=== PATIENT | female | born 1945 | race African-American/Black ===

== ENCOUNTER 2022-01-11 07:41 | Inpatient (IN) | payer MEDICAID ==
[~2022-01-11] VITALS: Ht 165.1 cm; Wt 72.6 kg
[2022-01-11 08:50] LABS: BASOPHILS % 0.3 % (0.0-2.0); HEMATOCRIT. 32.8 % (36.0-48.0); HEMOGLOBIN. 10.4 g/dL (12.0-16.0); LYMPHOCYTES % 12.6 % (20.0-50.0); MEAN CORPUSCULAR HEMOGLOBIN 25.7 pg (28.0-32.0); MEAN CORPUSCULAR VOLUME 80.7 fL (81.0-99.0); MEAN PLATELET VOLUME 8.5 fl (7.4-10.4); MONOCYTES % 6.9 % (2.0-8.0); NEUTROPHILS % 80.2 % (40.0-76.0); PLATELET 163 x1000/uL (130-400); RED BLOOD CELL COUNT 4.07 mill/uL (4.2-5.4); RED CELL DISTRIBUTION WIDTH 19.2 % (11.6-14.6)
[2022-01-11 09:02] LABS: CHLORIDE 100 mEq/L (98-107)
[2022-01-11] MEDS ORDERED: KETOROLAC 15MG/ML VIAL IV ONE (09:30)
[2022-01-11] MEDS ORDERED: ONDANSETRON HCL 4MG/2ML INJ IV ONE (10:00)
[2022-01-11] MEDS ORDERED: ASPIRIN 81MG TABLET PO ONE (11:00)
[2022-01-11] MEDS ORDERED: FUROSEMIDE 40MG/4ML VIAL IV ONE (11:00)
[2022-01-11 13:56] LABS: CLARITY URINE CLEAR (CLEAR); COLOR URINE YELLOW (YELLOW); KETONES URINE NEGATIVE (NEGATIVE); LEUKOCYTE ESTERASE URINE NEGATIVE (NEGATIVE); NITRITE URINE NEGATIVE (NEGATIVE); OCCULT BLOOD URINE 1+ (NEGATIVE); PROTEIN URINE 1+ (NEGATIVE); UROBILINOGEN URINE 0.2 E.U./dL (0.2-1.0)
[2022-01-11] MEDS ORDERED: DOCUSATE SODIUM 100MG CAPSULE PO PRN (14:30)
[2022-01-11] MEDS ORDERED: CLONIDINE 0.1MG TABLET PO PRN (14:30)
[2022-01-11] MEDS ORDERED: NITROGLYCERIN 0.4MG TABLET SL SL PRN (14:30)
[2022-01-11] MEDS ORDERED: MAGNESIUM/ALUMINUM HYDROXIDE/SIMETHICONE 30ML UDC PO PRN (14:30)
[2022-01-11] MEDS ORDERED: GUAIFENESIN 200MG/10ML SUGAR FREE UDC PO PRN (14:30)
[2022-01-11] MEDS ORDERED: ACETAMINOPHEN 325MG TABLET PO PRN (14:30)
[2022-01-11] MEDS ORDERED: ONDANSETRON HCL 4MG/2ML INJ IV PRN (14:30)
[2022-01-11] MEDS ORDERED: IPRATROPIUM/ALBUTEROL 0.5-3(2.5)MG/3ML NEB NEB PRN (14:30)
[2022-01-11] MEDS: ENOXAPARIN 40MG/0.4ML SYR SUBCUT SCH (14:30)
[2022-01-11 15:43] LABS: ETHANOL BLOOD < 10 mg/dL
[2022-01-11 15:45] LABS: LDL CHOLESTEROL 70 mg/dL (5-100); TOTAL IRON BINDING CAPACITY 474 ug/dL (250-450)
[2022-01-11 15:47] LABS: HDL CHOLESTEROL 35 mg/dL (40-59)
[2022-01-11 15:48] LABS: T4 FREE 1.24 ng/dL (0.76-1.46)
[2022-01-11 16:20] LABS: VITAMIN B12 SERUM 1478 pg/mL (211-911)
[2022-01-11 16:37] LABS: FOLIC ACID (FOLATE) SERUM > 20.00 ng/mL (>5.38)
[2022-01-11 16:44] VITALS: BP 144/100
[2022-01-11] MEDS: KETOROLAC 15MG/ML VIAL IV PRN (17:35)
[2022-01-11] MEDS ORDERED: LATA2.5D14 EACHEYE (18:01)
[2022-01-11] MEDS ORDERED: GABA-532 MT (18:01)
[2022-01-11] MEDS ORDERED: BRIM5DRO6 EACHEYE (18:01)
[2022-01-11] MEDS ORDERED: ALEN70TA79 MT (18:03)
[2022-01-11] MEDS ORDERED: DORZ10DR9 EACHEYE (18:39)
[2022-01-11] MEDS ORDERED: NIFE90TA2 PO (18:39)
[2022-01-11] MEDS ORDERED: LISI10TA26 MT (18:39)
[2022-01-11] MEDS ORDERED: TOPUD PO (18:39)
[2022-01-11] MEDS ORDERED: ACET500C47 MT (18:39)
[2022-01-11] MEDS ORDERED: HYDR25TA MT (18:39)
[2022-01-11 18:40] VITALS: BP 144/100
[2022-01-11] MEDS: ACETAMINOPHEN 325MG TABLET PO PRN (19:40)
[2022-01-11 20:00] VITALS: BP 158/95
[2022-01-11] MEDS: FUROSEMIDE 40MG/4ML VIAL IVP SCH (21:16)
[2022-01-11] MEDS: FAMOTIDINE 20MG TABLET PO SCH (21:17)
[2022-01-11] MEDS: SPIRONOLACTONE 25MG TABLET PO SCH (21:17)
[2022-01-11] MEDS: ASPIRIN 325MG EC TABLET PO SCH (21:17)
[2022-01-11] MEDS: ZOLPIDEM TARTRATE 5MG TABLET PO PRN (21:29)
[2022-01-11 22:20] LABS: CREATINE KINASE MB FRACTION 2.8 ng/mL (0.5-3.6)
[2022-01-12] VITALS: BP 138/88
[2022-01-12] MEDS: KETOROLAC 15MG/ML VIAL IV PRN ×2 (00:28→11:31)
[2022-01-12 04:00] VITALS: BP 128/74
[2022-01-12 07:56] LABS: HEMATOCRIT. 30.2 % (36.0-48.0); HEMOGLOBIN. 10.1 g/dL (12.0-16.0); MEAN CORPUSCULAR HEMOGLOBIN 25.8 pg (28.0-32.0); MEAN CORPUSCULAR VOLUME 77.3 fL (81.0-99.0); MEAN PLATELET VOLUME 8.8 fl (7.4-10.4); PLATELET 178 x1000/uL (130-400); RED CELL DISTRIBUTION WIDTH 18.6 % (11.6-14.6)
[2022-01-12 08:00] VITALS: BP 139/79
[2022-01-12 08:00] LABS: CHLORIDE 101 mEq/L (98-107)
[2022-01-12 08:07] LABS: PHOSPHORUS 4.1 mg/dL (2.5-4.9)
[2022-01-12 08:10] LABS: CREATINE KINASE 81 IU/L (26-192)
[2022-01-12 08:16] LABS: CREATINE KINASE MB FRACTION 2.4 ng/mL (0.5-3.6)
[2022-01-12] MEDS: FAMOTIDINE 20MG TABLET PO SCH ×2 (11:30→22:36)
[2022-01-12] MEDS: FUROSEMIDE 40MG/4ML VIAL IVP SCH ×2 (11:30→22:36)
[2022-01-12] MEDS: ENOXAPARIN 40MG/0.4ML SYR SUBCUT SCH (11:30)
[2022-01-12] MEDS: SPIRONOLACTONE 25MG TABLET PO SCH ×2 (11:30→21:00)
[2022-01-12 12:00] VITALS: BP 131/97
[2022-01-12 14:20] LABS: PLATELET ESTIMATE NORMAL
[2022-01-12 16:00] VITALS: BP 136/91
[2022-01-12] MEDS: BRIMONIDINE 0.2% OPHTH DROPS 5ML BOTHEYE SCH ×2 (18:21→22:38)
[2022-01-12 20:00] VITALS: BP 110/70
[2022-01-12 20:51] LABS: INR 1.1; PROTHROMBIN TIME 11.4 sec (9.6-11.0)
[2022-01-12] MEDS: ENOXAPARIN 80MG/0.8ML SYR SUBCUT SCH (21:00)
[2022-01-12] MEDS: LATANOPROST 0.005% OPHTH DROPS 2.5ML EACHEYE SCH (22:36)
[2022-01-12] MEDS: TIMOLOL MALEATE 0.25% OPHTH DROPS 5ML EACHEYE SCH (22:36)
[2022-01-13] VITALS: BP 120/77
[2022-01-13 04:00] VITALS: BP 116/71
[2022-01-13] MEDS: BRIMONIDINE 0.2% OPHTH DROPS 5ML BOTHEYE SCH ×3 (06:43→21:28)
[2022-01-13 07:55] LABS: HEMATOCRIT. 29.9 % (36.0-48.0); HEMOGLOBIN. 9.9 g/dL (12.0-16.0); MEAN CORPUSCULAR HEMOGLOBIN 25.7 pg (28.0-32.0); MEAN CORPUSCULAR VOLUME 77.7 fL (81.0-99.0); MEAN PLATELET VOLUME 8.6 fl (7.4-10.4); PLATELET 182 x1000/uL (130-400); RED BLOOD CELL COUNT 3.85 mill/uL (4.2-5.4); RED CELL DISTRIBUTION WIDTH 18.4 % (11.6-14.6)
[2022-01-13 08:00] VITALS: BP 134/63
[2022-01-13 08:18] LABS: CHLORIDE 99 mEq/L (98-107)
[2022-01-13] MEDS: TIMOLOL MALEATE 0.25% OPHTH DROPS 5ML EACHEYE SCH ×2 (09:30→21:29)
[2022-01-13] MEDS: FAMOTIDINE 20MG TABLET PO SCH ×2 (09:30→21:24)
[2022-01-13] MEDS: ASPIRIN 325MG EC TABLET PO SCH (09:30)
[2022-01-13] MEDS: FUROSEMIDE 40MG/4ML VIAL IVP SCH ×2 (09:30→21:28)
[2022-01-13] MEDS: SPIRONOLACTONE 25MG TABLET PO SCH ×2 (09:35→21:25)
[2022-01-13] MEDS: ENOXAPARIN 80MG/0.8ML SYR SUBCUT SCH ×2 (10:41→21:28)
[2022-01-13 12:00] VITALS: BP 107/66
[2022-01-13 16:00] VITALS: BP 97/48
[2022-01-13 20:00] VITALS: BP 102/63
[2022-01-13] MEDS: LATANOPROST 0.005% OPHTH DROPS 2.5ML EACHEYE SCH (21:29)
[2022-01-13] MEDS: ZOLPIDEM TARTRATE 5MG TABLET PO PRN (22:51)
[2022-01-14] VITALS: BP 97/66
[2022-01-14 04:00] VITALS: BP 87/54
[2022-01-14 06:16] LABS: PLATELET ESTIMATE NORMAL
[2022-01-14] MEDS: BRIMONIDINE 0.2% OPHTH DROPS 5ML BOTHEYE SCH ×3 (06:29→21:30)
[2022-01-14 08:00] VITALS: BP 112/67
[2022-01-14] MEDS: ASPIRIN 325MG EC TABLET PO SCH (10:23)
[2022-01-14] MEDS: SPIRONOLACTONE 25MG TABLET PO SCH ×2 (10:24→21:44)
[2022-01-14] MEDS: FAMOTIDINE 20MG TABLET PO SCH ×2 (10:24→21:44)
[2022-01-14] MEDS: TIMOLOL MALEATE 0.25% OPHTH DROPS 5ML EACHEYE SCH ×2 (10:26→21:30)
[2022-01-14] MEDS: ENOXAPARIN 80MG/0.8ML SYR SUBCUT SCH ×2 (10:26→22:40)
[2022-01-14] MEDS: FUROSEMIDE 40MG/4ML VIAL IVP SCH ×2 (10:53→21:45)
[2022-01-14 12:00] VITALS: BP 100/59
[2022-01-14] MEDS ORDERED: LIDOCAINE HCL 1% 10 MG/ML 10ML VIAL ONE (12:38)
[2022-01-14] MEDS ORDERED: IOHEXOL-350 100 ML BOTTLE ONE (15:49)
[2022-01-14 16:00] VITALS: BP 109/55
[2022-01-14] MEDS: ACETAMINOPHEN 325MG TABLET PO PRN (17:04)
[2022-01-14 20:00] VITALS: BP 113/55
[2022-01-14] MEDS: LATANOPROST 0.005% OPHTH DROPS 2.5ML EACHEYE SCH (21:31)
[2022-01-14] MEDS: ZOLPIDEM TARTRATE 5MG TABLET PO PRN (21:44)
[2022-01-15] VITALS: BP 102/54
[2022-01-15 04:00] VITALS: BP 106/54
[2022-01-15] MEDS: BRIMONIDINE 0.2% OPHTH DROPS 5ML BOTHEYE SCH ×2 (05:39→14:23)
[2022-01-15 08:00] VITALS: BP 147/63
[2022-01-15] MEDS: ENOXAPARIN 80MG/0.8ML SYR SUBCUT SCH (09:00)
[2022-01-15] MEDS: ASPIRIN 325MG EC TABLET PO SCH (09:00)
[2022-01-15] MEDS: FUROSEMIDE 40MG/4ML VIAL IVP SCH (09:19)
[2022-01-15] MEDS: SPIRONOLACTONE 25MG TABLET PO SCH (09:19)
[2022-01-15] MEDS: FAMOTIDINE 20MG TABLET PO SCH (09:19)
[2022-01-15] MEDS: TIMOLOL MALEATE 0.25% OPHTH DROPS 5ML EACHEYE SCH (09:38)
[2022-01-15] MEDS ORDERED: APIX5TAB MT (10:49)
[2022-01-15] MEDS ORDERED: FURO-151 MT (10:49)
[2022-01-15] MEDS ORDERED: FAMO20TA8 PO (10:49)
[2022-01-15] MEDS ORDERED: SPIR25TA PO (10:49)
[2022-01-15] MEDS ORDERED: COR3 MT (10:49)
[2022-01-15 12:00] VITALS: BP 147/74
[2022-01-15] MEDS: ACETAMINOPHEN 325MG TABLET PO PRN (14:23)
[2022-01-15 14:27] VITALS: BP 147/74
== END 2022-01-15 16:00 | disposition home or self-care (01) | DRG 194 ==
LOC: ER 07:41 → 7EST 13:52 → EDBEDREQ 13:53 → EDBEDREQTM 13:58 → ENRESERV 14:19
PROVIDERS: ADMIT Internal Medicine; ATTEND Internal Medicine
PROC: 02H633Z Insertion of Infusion Device into Right Atrium, Percutaneous Approach (ICD-10-PCS; principal; 2022-01-14)
PROC: B548ZZA Ultrasonography of Superior Vena Cava, Guidance (ICD-10-PCS; 2022-01-14)
DX: I50.33 Acute on chronic diastolic (congestive) heart failure (principal); E44.0 Moderate protein-calorie malnutrition; D63.8 Anemia in other chronic diseases classified elsewhere; E83.51 Hypocalcemia; E87.1 Hypo-osmolality and hyponatremia; K76.1 Chronic passive congestion of liver; Z79.01 Long term (current) use of anticoagulants; Z20.822 Contact with and (suspected) exposure to COVID-19; Z85.3 Personal history of malignant neoplasm of breast; Z90.10 Acquired absence of unspecified breast and nipple; Z79.899 Other long term (current) drug therapy; Z68.26 Body mass index [BMI] 26.0-26.9, adult
CPT/HCPCS: 36415; 71045; 71275; 74176; 76937; 80053; 80061; 80320; 81003; 82550; 82553; 82607; 82746; 83036; 83540; 83550; 83735; 83880; 84100; 84439; 84443; 84484; 85025; 87426; 93005; 93306; 93970; 99291; C1725; C1893; J1650; J1885; J1940; J2405; J3490; Q9967; G0480